=== PATIENT | male | born 1935 | race African-American/Black ===

== ENCOUNTER 2016-03-02 13:31 | Inpatient (IN) | payer OTHER, MEDICARE ==
[~2016-03-02] VITALS: Ht 167.6 cm; Wt 61.2 kg
--- NOTE | ~2016-03-02 | HC ---
[facility] [place] [address] CONSULTATION Name: XAVI LEYVA Room #: 460-P [facility] IN M.R.#: [id number] Admission: 03/02/16 Attend Phys: Joann Dinh MD Discharge: Date of : 36 Report #: [id number] THIS REPORT FOR: //name// CC: [facility] physician/PCP Joann Dinh REASON FOR CONSULTATION: I was asked to evaluate concerning sinusitis and facial cellulitis and left periorbital cellulitis with oroantral fistula. HISTORY OF PRESENT ILLNESS: The patient is a 80-year-old with underlying history of hypertension, had an apical dental abscess and required a root canal which failed. Required dental extraction. Following this, developed maxillary sinusitis on the left. This continued to progress and now has a left sided facial swelling and periorbital edema with diplopia. Imaging studies showed the erosion of bone roof of the ethmoid and lateral ethmoid with involvement of the anterior cranial fossa and frontal sinus. Last evening, he was taken to surgery by Dr. Jelani Franks. Total ethmoidectomy with removal of sinus contents maxillary antrostomy and removal of sinus contents with sphenoidotomy and removal sinus contents and frontal sinusotomy. He had stereotactic left orbital decompression and drainage. Septoplasty and bilateral submucous inferior turbinectomy. He tolerated the procedure well without side effects. He now has taken notes, still has diplopia, but vision appears intact. No cough or sputum production. No nausea, vomiting or diarrhea. No dysuria or frequency. The patient has lost about 15 pounds. He has had poor oral intake. PAST MEDICAL HISTORY: Chronic kidney disease, hypertension, degenerative joint disease. ALLERGIES: None. MEDICATIONS: As noted on his MAR, now on clindamycin. FAMILY HISTORY: Diabetes, prostate cancer. SOCIAL HISTORY: Nonsmoker, no significant alcohol intake. He is retired. REVIEW OF SYSTEMS: Noted above. PHYSICAL EXAMINATION: VITAL SIGNS: Afebrile and hemodynamically stable. GENERAL: He has had hiccups. Mentally intact. HEENT: Left periorbital has swelling and ecchymosis. Large amount of conjunctival edema. Pupils reactive. He did note diplopia. Nasal packing in place. Left maxillary swelling. No drainage from intraoral. . NECK: Supple. [facility] [address] [place] [address] CONSULTATION Name: XAVI LEYVA Room #: 460[facility] IN M.R.#: [id number] Admission: 03/02/16 Attend Phys: Joann Dinh MD Discharge: Date of : 36 Report #: [id number] LUNGS: Clear. HEART: Regular, without murmur. ABDOMEN: Soft and nontender. EXTREMITIES: Unremarkable. LABORATORY STUDIES: Gram stain from the sinus contents showed no WBCs, no organisms seen. So far no growth, hemoglobin 12, white cell count 11.6, platelet count 332,000 and hemoglobin A1c was 6.1. Hemoglobin 13, white cell count 9.3, platelet count 332,000 on presentation. Sodium 129, potassium 4.9, bicarbonate 25, creatinine 2.8. Liver function tests normal. Baseline creatinine was 1.7 in 2012. IMPRESSION: A 80-year-old with extensive left maxillary ethmoid and frontal sinusitis following dental abscess. Fistulous tract was identified. PLAN: Would recommend continuing IV antibiotic therapy pending culture results. I agree with corticosteroids help decrease some of inflammation. <ELECTRONICALLY SIGNED> By: Jose Carlos Washington MD 03/06/16 1010 1202 1251 Jose Carlos Washington MD /nt
--- NOTE | ~2016-03-02 | O ---
[facility] [place] [address] OPERATIVE REPORT Name: XAVI LEYVA Room #: 460-P [facility] IN M.R.#: [id number] Admission: 03/02/16 Attend Phys: Joann Dinh MD Discharge: 03/07/16 Date of : 36 Report #: [id number] THIS REPORT FOR: //name// CC: [facility] physician/PCP Kannan Rapp MD DATE OF SERVICE: 03/02/2016 SURGEON: Jelani Franks MD PREOPERATIVE DIAGNOSES: 1. 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 2. Left periorbital cellulitis. POSTOPERATIVE DIAGNOSES: 1. 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 2. Left periorbital cellulitis. 3. Deviated septum. 4. Inferior turbinate hypertrophy. OPERATIVE PROCEDURE: 1. Bilateral stereotactic image-guided endoscopic total ethmoidectomy with removal of sinus contents, maxillary antrostomy with removal of sinus contents, sphenoidotomy with removal of sinus contents and frontal sinusotomy. 2. Left endoscopic stereotactic image-guided orbital decompression and drainage. 3. Septoplasty. 4. Bilateral submucous inferior turbinectomy. ANESTHESIA: General. ESTIMATED BLOOD LOSS: 100 mL. INDICATIONS FOR SURGERY: The patient is a 80-year-old male, a patient of Dr. Franc Rosario. He initially presented after a dental extraction with severe [facility] [address] [place] [address] OPERATIVE REPORT Name: XAVI LEYVA Room #: 460-P [facility] IN [facility].#: [id number] Admission: 03/02/16 Attend Phys: Joann Dinh MD Discharge: 03/07/16 Date of : 36 Report #: [id number] maxillary sinusitis. The sinusitis has progressed and he now presents with left-sided facial cellulitis, left periorbital cellulitis, severe sinusitis with erosion of the bone in the roof of the ethmoid and the lateral ethmoid involvement of the anterior cranial fossa and the frontal sinus. This extensive disease was documented by 2 CT scans and there was concern that this disease may be progressing intracranially. I recommended emergent sinus surgery for removal of this disease process. DESCRIPTION OF OPERATION: The patient was placed in the operating table in the supine position. After general endotracheal anesthesia was achieved, each side of the nose was injected with lidocaine with epinephrine and packed with 4% cocaine-soaked cottonoids. The CT images were then downloaded on to the PeeplePass system for stereotactic image guidance. The system was calibrated in the usual manner and stereotactic guidance was done with a Tricut blade, a 40-degree RAD blade, a curved frontal sinus suction and a straight Amezcua suction. No intracranial penetration occurred. No CSF leakage was detected. After adequate vasoconstriction was achieved, I examined the nose. The nasal septum was moderately deviated to the left affecting my nasal examination and access. I decided to proceed with a left-sided septoplasty. I made a left-sided hemitransfixion incision. I elevated a mucoperichondrial and mucoperiosteal flap on the left side of the nasal septum. The posterior bony cartilaginous junction was disarticulated and mucoperiosteal flap was elevated in the right side of the bony septum. The posterior bony deviation and the inferior aspect of the cartilaginous septum were submucosally resected. I then reapproximated the flaps and closed the incision with 4-0 chromic and used a 4-0 plain gut transseptal mattress suture to position the flaps in the midline. I then proceeded endoscopically to address the sinusitis. I addressed the left side first with image guidance. The left middle turbinate was endoscopically outfractured exposing the uncinate process. The uncinate process was resected with a side-biting forceps and the natural ostium of the left maxillary sinus was widely open with a ball probe, a side-biting forceps and a Tricut blade. There was marked mucosal disease within the left maxillary sinus and some pus. I resected some of this mucosal disease with a 40-degree RAD blade. I then proceeded with a total ethmoidectomy through the ethmoid bulla widely opening the anterior and posterior ethmoid air cells anteriorly and posteriorly, anteriorly with the Tricut blade. I entered the sphenoid sinus medially and inferiorly and created a wide-open sphenoid sinus. I avoided the areas of bony dehiscence within the sphenoid sinus and stayed medially and inferiorly and did resect some of the diseased mucosa from the sphenoid sinus. Likewise, in the ethmoid sinus, I resected hyperplastic infected disease mucosa and sent this for pathology and culture. Cultures obtained included aerobic, anaerobic, fungal and AFB. I was careful along the roof of the ethmoid since there was no palpable bone, only soft tissue. I opened up the frontal nasal duct with a 40 [facility] [address] [place] [address] OPERATIVE REPORT Name: XAVI LEYVA Room #: 460-P [facility] IN [facility]#: [id number] Admission: 03/02/16 Attend Phys: Joann Dinh MD Discharge: 03/07/16 Date of : 36 Report #: [id number] degree RAD blade widely and the frontal recess air cells widely with a 40 degree RAD blade and was able to pass the curved frontal sinus suction into the frontal sinus. I preserved the left middle turbinate and eventually packed the left ethmoid sinus with Merogel soaked with saline. I turned my attention to the right side of the nose and proceeded in a similar manner endoscopically. The ethmoid and maxillary sinus were not as severe on this side. I used a side-biting forceps to open up the maxillary sinus and resect the uncinate process. I opened the sinus widely with a ball probe with Elvin-Cut forceps and a Tricut blade creating a large right middle meatal antrostomy. I proceed with a total ethmoidectomy, widely opening the anterior and posterior ethmoid air cells where there was diseased mucosa. I then opened up the disease sphenoid sinus with the Tricut blade and created a large sphenoidotomy medially and inferiorly again resecting the hyperplastic disease mucosa, but avoiding the lateral and superior aspect of the sphenoid sinus. I used the 40-degree RAD blade to open up the frontal recess air cells and then passed it up into the frontal nasal duct widely easily. I then packed the right ethmoid sinus with Merogel soaked with saline. I turned my attention back to the left side of the nose. I removed the Merogel and replaced it later. I shaved off the diseased mucosa along the lamina papyracea and lateral nasal wall and lateral ethmoid. I resected some of the lamina papyracea that was diseased. I incised the periorbita and pushed on the globe until I got herniation of orbital contents into the maxillary sinus. I made sure that there was a fairly good decompression of the orbit into the sinus, but I did not encounter any pus coming through. I then repacked the left ethmoid sinus. I did avoid the rectus muscles in this process. I then turned my attention to the inferior turbinates. I made incisions along each inferior turbinate. I elevated mucosa and trimmed submucosally with a Tricut blade and then cauterized along each with suction cautery. The nose and pharynx were suctioned and ____ dressing was applied. The patient was awakened in the operating room, taken to recovery room in stable condition. He will be observed as an inpatient. He will have an MRI of his brain in the morning. He will be treated with intravenous clindamycin until the infectious disease sees him. Again, cultures are pending. We will also give him intravenous Decadron. His diet will be as tolerated. Activity will be limited. He will have an infectious disease consultation, an ophthalmology consultation and hospitalist input. <ELECTRONICALLY SIGNED> By: Jelani Franks MD 03/13/162046 31 37 Jelani Franks MD /nt
--- NOTE | ~2016-03-02 | HC ---
[facility] [place] [address] CONSULTATION Name: XAVI LEYVA Room #: 460-[facility] IN M.R.#: [id number] Admission: 03/02/16 Attend Phys: Joann Dinh MD Discharge: 03/07/16 Date of : 36 Report #: [id number] THIS REPORT FOR: //name// CC: [facility] physician/PCP Joann Dinh DATE OF SERVICE: 03/04/2016 REASON FOR CONSULTATION: Wkysd-cp-itaiqgn kidney disease. HISTORY OF PRESENT ILLNESS: The patient is well known to our service, followed in our office by Dr. Gibbons, has chronic kidney disease, baseline creatinine of 2. He has longstanding hypertension, borderline blood sugar and was found to have nephrosclerosis. The patient had some dental work done, developed extensive sinusitis, underwent extensive procedure yesterday for that. Also, has some pulmonary infiltrates, diagnosed with pneumonia and with all that, not surprisingly his creatinine jennifer up a little bit to 2.8, now has improved to 2.5. He also has a low serum sodium, had been getting half normal saline, has now been correct and along with all that, an elevated potassium, which should also improve. PAST MEDICAL HISTORY: He has hypertension, borderline blood sugars, some history of COPD. ALLERGIES: No known medical allergies. FAMILY HISTORY: Positive for diabetes and prostate cancer. SOCIAL HISTORY: Currently, no smoking or alcohol. HOME MEDICATIONS: Include losartan 25 mg daily, aspirin 81 mg daily. REVIEW OF SYSTEMS: GENERAL: Aside from these dental and sinus problems, he has been feeling reasonably well. Denies any skin lesions. He is swallowing okay. ENDOCRINE: He has had some borderline blood sugars. No thyroid disease. RESPIRATORY: Not really short of breath, no hemoptysis. CARDIAC: Denies chest pain or swelling in his legs, no arrhythmias. GASTROINTESTINAL: Denies nausea, vomiting or diarrhea. GENITOURINARY: Reasonably good urinary stream. PSYCHIATRIC: No depression or anxiety. NEUROLOGIC: No seizure, syncope or stroke. PHYSICAL EXAMINATION: GENERAL: Thin, reasonably well-appearing gentleman. He has nasal packing in [facility] [address] [place] [address] CONSULTATION Name: XAVI LEYVA Room #: 460-P [facility] IN M.R.#: [id number] Admission: 03/02/16 Attend Phys: Joann Dinh MD Discharge: 03/07/16 Date of : 36 Report #: [id number] bilaterally. MUSCULOSKELETAL: Skeletal shows him to be thin gentleman, well developed, well nourished. EYES: Extraocular movements are otherwise full. No scleral icterus. Mucous membranes moist. NECK: Supple, no JVD. CHEST: Clear to auscultation. HEART: Regular. ABDOMEN: Soft and nontender, without bruits, masses or organomegaly. EXTREMITIES: No peripheral edema. NEUROLOGIC: Grossly intact. LABORATORY DATA: Hemoglobin 11.4, white count 19.2, platelets 311. Sodium 129, potassium 5.6, chloride 93, bicarbonate 27, creatinine 2.5, BUN 51. ASSESSMENT AND PLAN: Lmtpt-pn-mpqvudr kidney disease. Creatinine is up. He has chronic kidney disease, baseline creatinine of about 2. He is followed in our office. He is appropriately getting IV fluids. At this point, his potassium is little bit up. I have stopped his losartan. Renal sonogram has been ordered, and I will check some urine studies as well. <ELECTRONICALLY SIGNED> By: Jeffery Nelson MD 03/16/16 1126 1224 2356 Jeffery Nelson MD /nt
--- NOTE | ~2016-03-02 | EKG ---
[address] [place] [address] ELECTROCARDIOGRAM REPORT Name: XAVI LEYVA Room #: 460-P ADM IN M.R.#: [id number] Admission: 03/02/16 Attend Phys: Joann Dinh MD Discharge: Date of : 36 Report #: [id number] THIS REPORT FOR: //name// [facility] Test Date: 2016-03-02 Test Time: 16:13:36 Pat Name: XAVI LEYVA Department: Room: 460 P Gender: M Agency Owner: Caroline BURKS : 1935 Requested By: Jelani Franks Order Number: [id number] MD: Lenyn Prajapati Measurements Intervals [place] Rate: 75 P: 79 [place]: 129 QRS: 55 QRSD: 79 T: 93 QT: 405 QTc: 453 Interpretive Statements Sinus rhythm LVH with secondary repolarization abnormality Baseline wander in lead(s) V3 No previous ECG available for comparison Electronically Signed On 03-02-2016 16:52:22 CUTTING TORCH OPERATOR by Lenny Prajapati [email or web address] <ELECTRONICALLY SIGNED> By: Lenny Prajapati MD 03/02/16 1652 12 12 Lenny Prajapati MD /GRETEL
--- NOTE | ~2016-03-02 | S ---
[facility] [place] [address] SURGICAL PATH RPT PROCEDURE Name: XAVI LEYVA Room #: 460-P ADM IN M.R.#: [id number] Admission: 03/02/16 Date of : 36 Discharge: Report #: [id number] Path Case #: [id number] PATHOLOGY REPORT COLLECTION DATE: 03/02/2016 RECEIVED DATE: 03/03/2016 SUBMITTING PHYS: Dr. Jelani Franks Jr. OTHER PHYS: Dr. Kannan Dinh SPECIMEN(S) RECEIVED: A.Sinus contents * * * * * * * * * * * * FINAL DIAGNOSIS: Sinus contents: - MODERATELY DIFFERENTIATED INVASIVE SQUAMOUS CELL CARCINOMA. - FRAGMENTS OF REACTIVE BONE WITH ADJACENT CARCINOMA. - Sinonasal mucosal fragments with moderate chronic inflammation and no increase in eosinophils within the infiltrate. COMMENT: Co-review: Dr. Yu Molina Findings are discussed with Dr. Jelani Franks at approximately 1 pm on 03/06/16. (IUV:all; d/t: 03/06/2016) PATHOLOGIST: Dominga Mobley M.D. REPORT ELECTRONICALLY SIGNED BY: Dominga Mobley M.D. DATE/TIME: 03/06/2016 15:34 * * * * * * * * * * * * GROSS PATHOLOGY: Received in formalin labeled "Xavi Leyva and sinus contents," is a 1.8 x 1.0 x 0.3 cm aggregate of multiple fragments of barrera membranous tissue admixed with small fragments of bone. The specimen is entirely submitted in cassette A1, following decalcification. (TTL; 03/03/2016) CLINICAL HISTORY: Sinusitis, orbital cellulitis INITIAL CPT CODE(S): A; 04651, 72865 Professional services performed by [facility] [address] [place] [address] SURGICAL PATH RPT PROCEDURE Name: AUTUMNXAVI Room #: 460-P ADM IN M.R.#: [id number] Admission: 03/02/16 Date of : 36 Discharge: Report #: [id number] Path Case #: [id number], [place] [address] Technical services performed by [facility] at [address] [place] [address], [address] [address]. [place] [address] PHONE: [phone] DIRECTOR: Caleb Byrd M.D. * * * END OF REPORT * * *
[~2016-03-02 13:31] MED LIST: ASPIRIN EC81 M1 PO; CARDIZEM CD240 MG PO; COLACE 100 MG100 MG PO; MICARDIS 20MG T20 M1 PO; MINOCYCLINE 5050 M1 PO; MOBIC7.5 M1 PO; NORCO 5-325 TA1 EACH PO; VICODIN 5-5001 EACH PO
[2016-03-02 16:28] LABS: HEMATOCRIT 39.9 % (42.0-52.0); HEMOGLOBIN 13.4 gm/dL (14.0-18.0); MCH 30.1 pg (26.0-34.0); MCHC 33.6 % (28.0-37.0); MCV 89.6 fL (80.0-100.0); RBC 4.45 mil/uL (4.50-6.00); RDW 12.9 % (10.5-14.5); WBC 9.3 thou/uL (4.0-11.0)
[2016-03-02 16:30] VITALS: BP 186/89
[2016-03-02] MEDS ORDERED: AUGMENTIN 875875 MG PO (16:33)
[2016-03-02] MEDS ORDERED: HYDROCODONE-APA1 TA1 PO (16:34)
[2016-03-02] MEDS ORDERED: COZAAR 25 MG TA25 M1 PO (16:34)
[2016-03-02 16:44] LABS: APTT 28.9 Seconds (24.5-32.8); INR 1.1; PROTIME 11.8 Seconds (9.3-11.4)
[2016-03-02 19:25] VITALS: BP 176/73
[2016-03-02 23:54] VITALS: BP 181/80
[2016-03-03 02:10] LABS: GLYCOHEMOGLOBIN (HGB A1C) 6.1 % (4.8-5.6)
[2016-03-03 04:45] VITALS: BP 164/66
[2016-03-03 05:39] LABS: HEMATOCRIT 36.7 % (42.0-52.0); MCH 29.6 pg (26.0-34.0); MCHC 32.7 % (28.0-37.0); MCV 90.7 fL (80.0-100.0); PLATELET COUNT 332 thou/uL (150-400); RBC 4.05 mil/uL (4.50-6.00); RDW 12.9 % (10.5-14.5); WBC 11.6 thou/uL (4.0-11.0)
[2016-03-03 05:50] LABS: MANUAL DIFF YES
[2016-03-03 06:31] LABS: ALBUMIN 2.7 g/dL (3.4-5.0); CALCIUM 8.2 mg/dL (8.5-10.1); CREATININE 2.8 mg/dL (0.6-1.3); POTASSIUM 4.9 mmol/L (3.5-5.1); TOTAL BILIRUBIN 0.4 mg/dL (<0.1-1.0)
[2016-03-03 07:52] VITALS: BP 143/73
[2016-03-03 08:39] LABS: ABSOLUTE NEUTROPHILS 10.6 thou/uL (1.4-8.2); TOTAL CELL COUNT 100
[2016-03-03 08:40] LABS: ANISOCYTOSIS SLIGHT
[2016-03-03 11:03] VITALS: BP 146/58
[2016-03-03 15:24] VITALS: BP 147/55
[2016-03-03 21:03] VITALS: BP 141/62
[2016-03-04 04:21] VITALS: BP 118/54
[2016-03-04 06:01] LABS: HEMATOCRIT 35.3 % (42.0-52.0); HEMOGLOBIN 11.4 gm/dL (14.0-18.0); MCH 29.6 pg (26.0-34.0); MCHC 32.4 % (28.0-37.0); MCV 91.4 fL (80.0-100.0); PLATELET COUNT 311 thou/uL (150-400); RBC 3.86 mil/uL (4.50-6.00); RDW 12.9 % (10.5-14.5); WBC 19.2 thou/uL (4.0-11.0)
[2016-03-04 06:11] LABS: ALBUMIN 2.8 g/dL (3.4-5.0); CALCIUM 8.6 mg/dL (8.5-10.1); CREATININE 2.5 mg/dL (0.6-1.3); PHOSPHORUS 3.7 mg/dL (2.5-4.9); POTASSIUM 5.6 mmol/L (3.5-5.1)
[2016-03-04 06:44] LABS: MANUAL DIFF YES
[2016-03-04 08:00] VITALS: BP 168/69
[2016-03-04 10:07] LABS: ABSOLUTE NEUTROPHILS 18.2 thou/uL (1.4-8.2); TOTAL CELL COUNT 100
[2016-03-04 12:00] VITALS: BP 171/71
[2016-03-04 13:01] LABS: URINE BILIRUBIN NEGATIVE (Negative); URINE BLOOD TRACE (Negative); URINE COLOR YELLOW; URINE GLUCOSE-RANDOM* NEGATIVE (Negative); URINE KETONES NEGATIVE (Negative); URINE NITRITE NEGATIVE (Negative); URINE PROTEIN (DIPSTICK) 2+ (Negative); URINE SPECIFIC GRAVITY 1.025 (1.003-1.035); URINE UROBILINOGEN 0.2 E.U./dl (0.2-1.0)
[2016-03-04 13:16] LABS: CASTS None Seen /LPF (None Seen); SQUAMOUS 0-3 Few /LPF (0-3)
[2016-03-04 13:18] LABS: BACTERIA None Seen /HPF (None Seen); CRYSTALS None Seen /LPF (None Seen); URINE RBC 0-2 Rare /HPF (0-2); URINE WBC 0-5 Rare /HPF (0-5)
[2016-03-04 16:00] VITALS: BP 147/64
[2016-03-04 20:52] VITALS: BP 170/58
[2016-03-04 21:06] LABS: GLYCOHEMOGLOBIN (HGB A1C) 6.2 % (4.8-5.6)
[2016-03-05 04:23] VITALS: BP 190/79
[2016-03-05 05:56] LABS: HEMATOCRIT 35.5 % (42.0-52.0); HEMOGLOBIN 11.5 gm/dL (14.0-18.0); MCH 29.8 pg (26.0-34.0); MCHC 32.4 % (28.0-37.0); MCV 92.1 fL (80.0-100.0); PLATELET COUNT 317 thou/uL (150-400); RBC 3.85 mil/uL (4.50-6.00); RDW 12.9 % (10.5-14.5); WBC 20.5 thou/uL (4.0-11.0)
[2016-03-05 06:09] LABS: MANUAL DIFF YES
[2016-03-05 06:25] LABS: ALBUMIN 2.8 g/dL (3.4-5.0); CALCIUM 8.2 mg/dL (8.5-10.1); CREATININE 2.3 mg/dL (0.6-1.3); PHOSPHORUS 3.5 mg/dL (2.5-4.9); POTASSIUM 4.9 mmol/L (3.5-5.1)
[2016-03-05 08:04] VITALS: BP 177/69
[2016-03-05 08:15] LABS: ABSOLUTE NEUTROPHILS 20.1 thou/uL (1.4-8.2); TOTAL CELL COUNT 100
[2016-03-05 11:51] VITALS: BP 179/76
[2016-03-05 20:00] VITALS: BP 187/88
[2016-03-06 04:00] VITALS: BP 183/78
[2016-03-06 07:13] LABS: ALBUMIN 2.8 g/dL (3.4-5.0); CALCIUM 8.4 mg/dL (8.5-10.1); CREATININE 2.2 mg/dL (0.6-1.3); PHOSPHORUS 2.8 mg/dL (2.5-4.9); POTASSIUM 4.9 mmol/L (3.5-5.1)
[2016-03-06 07:51] VITALS: BP 144/77
[2016-03-06 08:06] VITALS: BP 208/83
[2016-03-06 08:29] LABS: HEMATOCRIT 36.6 % (42.0-52.0); HEMOGLOBIN 12.1 gm/dL (14.0-18.0); MCH 29.9 pg (26.0-34.0); MCHC 33.1 % (28.0-37.0); MCV 90.2 fL (80.0-100.0); RBC 4.05 mil/uL (4.50-6.00); RDW 13.1 % (10.5-14.5); WBC 19.6 thou/uL (4.0-11.0)
[2016-03-06 11:50] VITALS: BP 192/88
[2016-03-06 15:44] VITALS: BP 199/84
[2016-03-06 19:52] VITALS: BP 184/80
[2016-03-07 04:02] VITALS: BP 193/74
[2016-03-07 07:10] LABS: ALBUMIN 2.9 g/dL (3.4-5.0); CALCIUM 8.8 mg/dL (8.5-10.1); CREATININE 2.1 mg/dL (0.6-1.3); PHOSPHORUS 3.6 mg/dL (2.5-4.9); POTASSIUM 4.7 mmol/L (3.5-5.1)
[2016-03-07 08:00] VITALS: BP 173/78
[2016-03-07 11:15] VITALS: BP 169/85
[2016-03-07] MEDS ORDERED: AMLODIPINE BESY10 MG PO (12:51)
[2016-03-07] MEDS ORDERED: COZAAR 50 MG TA50 M1 PO (12:51)
[2016-03-07 16:42] VITALS: BP 169/85
[2016-03-07] MEDS ORDERED: AUGMENTIN 875875 MG PO (17:26)
[2016-03-07] MEDS ORDERED: PREDNISONE 10 M10 MG PO (17:28)
== END 2016-03-07 18:29 | disposition home health service (06) | DRG 853 ==
LOC: 4W 13:31
PROVIDERS: Family Medicine; Hospitalist; Internal Medicine Nephrology; Otolaryngology Plastic Surgery within the Head & Neck
PROC: 09TV4ZZ Resection of Left Ethmoid Sinus, Percutaneous Endoscopic Approach (ICD-10-PCS; principal; 2016-03-02)
PROC: 09BM4ZZ Excision of Nasal Septum, Percutaneous Endoscopic Approach (ICD-10-PCS; 2016-03-02)
PROC: 09BL4ZZ Excision of Nasal Turbinate, Percutaneous Endoscopic Approach (ICD-10-PCS; 2016-03-02)
PROC: 09JY4ZZ Inspection of Sinus, Percutaneous Endoscopic Approach (ICD-10-PCS; 2016-03-02)
DX: A41.9 Sepsis, unspecified organism (principal); E43 Unspecified severe protein-calorie malnutrition; L03.213 Periorbital cellulitis; E87.1 Hypo-osmolality and hyponatremia; N17.9 Acute kidney failure, unspecified; C31.0 Malignant neoplasm of maxillary sinus; C31.1 Malignant neoplasm of ethmoidal sinus; J01.80 Other acute sinusitis; R09.02 Hypoxemia; E87.5 Hyperkalemia; E11.9 Type 2 diabetes mellitus without complications; J32.1 Chronic frontal sinusitis; J32.0 Chronic maxillary sinusitis; J32.2 Chronic ethmoidal sinusitis; J44.9 Chronic obstructive pulmonary disease, unspecified; I12.9 Hypertensive chronic kidney disease with stage 1 through stage 4 chronic kidney disease, or unspecified chronic kidney disease; N18.9 Chronic kidney disease, unspecified; M19.90 Unspecified osteoarthritis, unspecified site; Z83.3 Family history of diabetes mellitus; Z98.890 Other specified postprocedural states; Z80.42 Family history of malignant neoplasm of prostate; Z79.899 Other long term (current) drug therapy; Z79.2 Long term (current) use of antibiotics; Z28.21 Immunization not carried out because of patient refusal
CPT/HCPCS: 10045; 10047; 50010; 50101; 50286; 50386; 50398; 52290; 52291; 53635; 56524; 56528; 56635; 62110; 62900; 70005

== ENCOUNTER 2016-03-13 04:30 | Inpatient (IN) | payer OTHER, MEDICARE ==
[~2016-03-13] VITALS: Ht 167.6 cm; Wt 51.7 kg
--- NOTE | ~2016-03-13 | EKG ---
[place] [address] [address] [facility] [facility] [place] [address] ELECTROCARDIOGRAM REPORT Name: XAVI LEYVA Room #: 170-1 ADM IN M.R.#: [id number] Admission: 03/13/16 Attend Phys: Foreign Mcrae MD Discharge: Date of : 36 Report #: [id number] THIS REPORT FOR: //name// [facility] ED Test Date: 2016-03-13 Test Time: 05:55:43 Pat Name: XAVI LEYVA Department: Room: 170 Gender: M [employer]: [id number] : 1935 Requested By: Jose Carlos East Order Number: [id number] MD: Gavin Winkler Measurements Intervals [place] Rate: 78 P: 49 SD: 125 QRS: 28 QRSD: 87 T: 160 QT: 388 QTc: 442 Interpretive Statements Sinus rhythm Probable LVH with secondary repol abnrm No previous ECGs available for comparison Electronically Signed On 03-13-2016 8:25:29 JOB SPECIFICATION WRITER by Gavin Winkler [email or web address] <ELECTRONICALLY SIGNED> By: Gavin Winkler MD, [facility] 03/13/16 0825 0555 0555 Gavin Winkler MD, FACC /EPI
--- NOTE | ~2016-03-13 | H ---
[facility] [place] [address] HISTORY AND PHYSICAL Name: XAVI LEYVA Room #: 427-P ADM IN M.R.#: [id number] Admission: 03/13/16 Attend Phys: Foreign Mcrae MD Discharge: Date of : 36 Report #: [id number] THIS REPORT FOR: //name// CC: GOLDIE Huff MD DATE OF SERVICE: 03/13/2016 CHIEF COMPLAINT: Facial pain. HISTORY OF PRESENT ILLNESS: The patient is a 80-year-old male admitted about 10 days ago for what was thought originally to be aggressive sinusitis with left facial cellulitis or bone involvement. He was taken to the operating room that night after CT scan demonstrated severe paranasal sinus opacification with erosion of bone within the ethmoid and sphenoid sinus. He had an aggressive endoscopic sinus surgery to debride this tissue and open things up. Specimens were then sent for histopathology, which revealed squamous cell carcinoma. The extent of disease is difficult to ascertain. He clearly has involvement of the ethmoid and sphenoid sinus with extension through the skull base and the lamina and the fovea ethmoidalis and sphenoid sinus and probably lamina papyracea. There is involvement of the maxillary sinus. This may partially be due to sinusitis from a prior dental extraction. The disorder and diagnosis was discussed at length with him and his family. Arrangements were made for discharge early last week and a consultation with Goldie Johnson MD. She saw him on Sunday of last week and began planning for radiation therapy treatment. This is not thought to be surgically resectable. However, he presented back to the Emergency Room today with acute facial pain and headache and difficulty managing this at home. He was using OxyContin at home. He is now seen in the Emergency Room complaining of facial pain that he rates an 8 on a scale of 8-10. He also has some right-sided flank pain. PAST MEDICAL HISTORY: Hypertension, diabetes. ALLERGIES: None. MEDICATIONS: Please see chart for details. SOCIAL HISTORY: Quit smoking about 10 years ago. Minimal alcohol. PHYSICAL EXAMINATION: GENERAL: An older male who is very uncomfortable. FACE: Marked facial swelling involving the left side of the face with orbital involvement with exophthalmus and reduced gaze and reduced extraocular muscle [address] [address] HISTORY AND PHYSICAL Name: XAVI LEYVA Room #: 427-P [facility] IN M.R.#: [id number] Admission: 03/13/16 Attend Phys: Foreign Mcrae MD Discharge: Date of : 36 Report #: [id number] movements on the left. There is a reduced sensation on the left. NECK: Mild bilateral cervical adenopathy. ASSESSMENT: 1. 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 2. Intractable pain. RECOMMENDATIONS: 1. Admission to the hospital for IV hydration and pain management. 2. Consider pain consultation if this is something that the hospitalist is not able to manage. 3. I discussed this case with Dr. Goldie Johnson. She is available to continue the care postop once he leaves the hospital. If inpatient radiation therapy needs to be considered, then perhaps transfer to [facility] will have to be arranged for inpatient radiation therapy care. 4. Consultation with Goldie Johnson MD. <ELECTRONICALLY SIGNED> By: Jelani Franks MD 03/13/16 2047 1502 1625 Jelani Franks MD /nt
--- NOTE | ~2016-03-13 | H ---
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 The patient was recently admitted here at on 03/03/2016 for left periorbital swelling and left maxillary pain. The patient underwent an MRI of the brain at that time which showed chronic changes and also extensive paranasal sinus inflammatory changes, combination of [id number] sinusitis, sinonasal polyposis. The patient was subsequently seen by Dr. Franks and underwent bilateral stereotactic image-guided endoscopic, total ethmoidectomy with removal of the sinus content, maxillary antrostomy with removal of stent, left endoscopic stereotactic image-guided orbital decompression and drainage, septoplasty and bilateral submucous inferior turbinectomy. The patient was then referred to . The patient was seen in the Radiation Oncology at . In fact, he is set up for mapping tomorrow. He was in fact supposed to have a PET scan done today at [facility]. The patient presented to the Emergency Room because of increasing pain. He has some mild headache. No nausea or vomiting. The patient denies any abdominal pain. He has been constipated. Last bowel movement was 2 days ago. The patient has diplopia, which started like 2-3 weeks ago. He also has some mild epistaxis. PAST MEDICAL HISTORY: Significant for hypertension, diabetes on diet controll. No history of any peptic ulcer disease, bleeding disorder, no coronary artery disease. No CVA. ALLERGIES: No known drug allergy. HOME MEDICATIONS: Reviewed, please look at the nursing documentation. SOCIAL HISTORY: No smoking or alcohol abuse or illicit drug abuse. FAMILY HISTORY: Significant for hypertension and brother has prostate cancer. REVIEW OF SYSTEMS: CONSTITUTIONAL: He has lost some weight, unable to quantify. No fever or chills. EYES: As per H and P. THROAT: Denies any sore throat. He has been quite thirsty at home. [address] [place] [address] HISTORY AND PHYSICAL Name: XAVI LEYVA Room #: 427-P [facility] IN .R.#: [id number] Admission: 03/13/16 Attend Phys: Foreign Mcrae MD Discharge: Date of : 37 Report #: [id number] CARDIOVASCULAR: No chest pain, dizziness, palpitations. RESPIRATORY: No cough, expectoration. GASTROINTESTINAL: No nausea or vomiting. GENITOURINARY: No dysuria or hematuria. NEUROLOGIC: No focal numbness or weakness of the extremities. PSYCHIATRIC: No anxiety or depression. The 12-point review of systems is negative other than the positive and the negative dictated in the history of present illness and the review of systems. PHYSICAL EXAMINATION: VITAL SIGNS: Blood pressure 143/73, heart rate of 82 per minute, respiratory rate of 14 per minute, afebrile. GENERAL: The patient is awake and alert, not in acute respiratory distress. The patient's is at bedside. HEENT: Right eye is normal. Pupils are around 2 mm, reactive to light. Left eye is shut. Eyelid is stuck. There is marked conjunctival erythema. Cornea appears intact. He does have epistaxis. Throat, he has a dry oral mucosa. NECK: Supple, no JVD, no bruit, no lymphadenopathy. CARDIOVASCULAR SYSTEM: S1, S2. No murmur. CHEST: Bilateral air entry present. Clear on auscultation. ABDOMEN: Soft, bowel sounds present, no mass, no organomegaly, no tenderness. PERIPHERY: No pedal edema. No calf tenderness. Dorsalis pedis 1+. NEUROLOGICAL: No gross motor or sensory deficit. LABORATORY DATA: Reviewed. White count is 13, hemoglobin is 11.9, hematocrit of 35. platelet is 220. Sodium is 120, chloride is 86, creatinine is 1.9. His last creatinine was 2.0. PT, PTT from March 02 are within normal limits. UA today is essentially normal. EKG showed normal sinus rhythm, probable LVH with secondary repolarization, no significant ST segment T-wave changes. X-ray of the abdomen showed nonspecific bowel gas patten. There is a right lung infiltrate in the perihilar region. CT of the facial bones showed extensive sinus opacification with bony destruction. There is extension of this change into the orbital there is swelling ventral to the left orbit that probably represents cellulitis with retrobulbar abscess, some extension of these changes ventral to the left upper lobe are considered. ASSESSMENT: 1. Intractable pain secondary to squamous cell carcinoma of the sinus with bony destruction. The patient will be started on long-acting OxyContin 10 mg b.i.d. We will also continue with his p.o. oxycodone for breakthrough pain. Consider increasing his OxyContin as needed. 2. Constipation. The patient will be placed on a bowel regimen. 3. Hyponatremia. The patient will be started on IV fluid. I am also going to go ahead and check and see the urine osmolality and urine sodium sodium could be related to SIADH related to his pain. [address] [place] [address] HISTORY AND PHYSICAL Name: XAVI LEYVA Room #: 427-P ADM IN M.R.#: [id number] Admission: 03/13/16 Attend Phys: Foreign Mcrae MD Discharge: Date of : 37 Report #: [id number] 4. Hypertension. The patient will be monitored closely. 5. Diabetes. We will place him on sliding scale insulin. 6. Left orbital exophthalmos with cellulitis. The patient will be started on Augmentin and prednisone. The patient was already seen by Dr. Franks from ENT this morning. 7. Deep venous thrombosis. He will be placed on SCD on the left for DVT prophylaxis. Treatment plan has been explained to the patient and the patient's family at bedside in detail. <ELECTRONICALLY SIGNED> By: Foreign Mcrae MD 03/13/16 1341 [id number] Foreign Mcrae MD /nt
[~2016-03-13 04:30] MED LIST changes: +AMLODIPINE BESY10 MG PO; +AUGMENTIN 875875 MG PO; +COZAAR 25 MG TA25 M1 PO; +COZAAR 50 MG TA50 M1 PO; +HYDROCODONE-APA1 TA1 PO; +PREDNISONE 10 M10 MG PO
[2016-03-13 04:40] VITALS: BP 167/75
[2016-03-13] MEDS ORDERED: OXYCODONE HCL 55 MG PO (04:50)
[2016-03-13 05:46] LABS: URINE BILIRUBIN NEGATIVE (Negative); URINE BLOOD NEGATIVE (Negative); URINE COLOR YELLOW; URINE GLUCOSE-RANDOM* NEGATIVE (Negative); URINE KETONES NEGATIVE (Negative); URINE LEUKOCYTES-REFLEX NEGATIVE (Negative); URINE PROTEIN (DIPSTICK) 2+ (Negative); URINE SPECIFIC GRAVITY 1.015 (1.003-1.035); URINE UROBILINOGEN 0.2 E.U./dl (0.2-1.0)
[2016-03-13 06:16] LABS: HEMATOCRIT 35.6 % (42.0-52.0); HEMOGLOBIN 11.9 gm/dL (14.0-18.0); MCH 29.8 pg (26.0-34.0); MCHC 33.5 % (28.0-37.0); MCV 88.9 fL (80.0-100.0); PLATELET COUNT 220 thou/uL (150-400); RDW 12.8 % (10.5-14.5)
[2016-03-13 06:19] LABS: MANUAL DIFF YES
[2016-03-13 06:48] LABS: SQUAMOUS None Seen /LPF (0-3)
[2016-03-13 06:49] LABS: CASTS None Seen /LPF (None Seen); CRYSTALS None Seen /LPF (None Seen); URINE RBC 0-2 Rare /HPF (0-2); URINE WBC-REFLEX 0-5 Rare /HPF (0-5)
[2016-03-13 07:17] LABS: CALCIUM 8.7 mg/dL (8.5-10.1); CREATININE 1.9 mg/dL (0.6-1.3); POTASSIUM 4.7 mmol/L (3.5-5.1)
[2016-03-13 07:27] LABS: ALBUMIN 2.4 g/dL (3.4-5.0); TOTAL BILIRUBIN 0.6 mg/dL (<0.1-1.0); TOTAL PROTEIN 6.2 g/dL (6.4-8.2); TROPONIN-I 0.04 ng/mL (<0.04-0.07)
[2016-03-13 08:38] VITALS: BP 143/73
[2016-03-13 08:54] LABS: ABSOLUTE NEUTROPHILS 10.8 thou/uL (1.4-8.2); PLATELET ESTIMATE NORMAL; TOTAL CELL COUNT 100
[2016-03-13 08:56] VITALS: BP 168/68
[2016-03-13 16:43] VITALS: BP 141/64
[2016-03-13 20:00] VITALS: BP 161/72
[2016-03-14 04:44] VITALS: BP 161/78
[2016-03-14 06:52] LABS: HEMATOCRIT 32.1 % (42.0-52.0); HEMOGLOBIN 10.8 gm/dL (14.0-18.0); MCHC 33.6 % (28.0-37.0); MCV 89.2 fL (80.0-100.0); PLATELET COUNT 249 thou/uL (150-400); RBC 3.59 mil/uL (4.50-6.00); RDW 12.9 % (10.5-14.5); WBC 15.3 thou/uL (4.0-11.0)
[2016-03-14 06:58] LABS: MANUAL DIFF YES
[2016-03-14 07:21] LABS: CALCIUM 8.5 mg/dL (8.5-10.1); MAGNESIUM 1.9 mg/dL (1.8-2.4); POTASSIUM 4.8 mmol/L (3.5-5.1)
[2016-03-14 08:00] VITALS: BP 151/74
[2016-03-14 10:34] LABS: ABSOLUTE NEUTROPHILS 14.4 thou/uL (1.4-8.2); TOTAL CELL COUNT 100
[2016-03-14 10:35] LABS: ANISOCYTOSIS SLIGHT; BURR CELLS OCCASIONAL; POIKILOCYTOSIS SLIGHT
[2016-03-14] MEDS ORDERED: AUGMENTIN 500-1 EACH PO (14:34)
[2016-03-14] MEDS ORDERED: PREDNISONE 20 M20 M1 PO (14:34)
[2016-03-14] MEDS ORDERED: OXYCODONE HCL 55 MG PO (14:34)
[2016-03-14] MEDS ORDERED: MIRALAX17 GM PO (14:34)
[2016-03-14] MEDS ORDERED: OXYCONTIN10 M1 PO (14:34)
[2016-03-14] MEDS ORDERED: COLACE 100 MG100 MG PO (14:34)
[2016-03-14 16:24] VITALS: BP 139/66
== END 2016-03-14 18:36 | disposition short-term general hospital (02) | DRG 146 ==
LOC: ER 04:30 → EROBS 07:45 → 4E 07:45
PROVIDERS: Emergency Medicine; Internal Medicine
DX: C31.0 Malignant neoplasm of maxillary sinus (principal); E43 Unspecified severe protein-calorie malnutrition; H05.012 Cellulitis of left orbit; E87.1 Hypo-osmolality and hyponatremia; D02.3 Carcinoma in situ of other parts of respiratory system; I10 Essential (primary) hypertension; G89.3 Neoplasm related pain (acute) (chronic); K59.00 Constipation, unspecified; E86.0 Dehydration; J33.8 Other polyp of sinus; E11.9 Type 2 diabetes mellitus without complications; J01.90 Acute sinusitis, unspecified; Z82.49 Family history of ischemic heart disease and other diseases of the circulatory system; Z79.899 Other long term (current) drug therapy; Z80.42 Family history of malignant neoplasm of prostate; Z87.891 Personal history of nicotine dependence; Z28.21 Immunization not carried out because of patient refusal
CPT/HCPCS: 10183